=== PATIENT | female | born 1995 | race Caucasian/White ===

== ENCOUNTER 2024-06-27 16:55 | Observation (INO) | payer MEDICAID, SELFPAY ==
[2024-06-27 16:55] VITALS: BP 119/80; PULSE 96; RESP 18; TEMP 36.6; O2SAT 98
[2024-06-27 17:08] VITALS: BP 119/80; PULSE 94
[2024-06-27 17:24] VITALS: BMI 30.4
[2024-06-27 17:56] LABS: ROM Kit Lot # 57809118; ROM Swab Mixed By: ROGEC1; Rupture of Fetal Membranes Negative (Negative); Swb Mxed in Solvent 1 min? Yes
--- NOTE | 2024-06-27 18:49 | PC.NURSE ---
discharge home with kick counts and labor percautions given pt states she understands.
== END 2024-06-27 18:47 | disposition home or self-care (01) ==
PROVIDERS: Admitting Provider Obstetrics & Gynecology; Visit Provider Obstetrics & Gynecology
DX: Z34.83 Encounter for supervision of other normal pregnancy, third trimester (principal); Z3A.36 36 weeks gestation of pregnancy
CPT/HCPCS: 59025; 59899; 84112

== ENCOUNTER 2024-07-21 10:25 | Inpatient (IN) | payer MEDICAID, SELFPAY ==
[2024-07-21] VITALS (42 sets, daily range): BP systolic 101–139; BP diastolic 52–81; PULSE 63–113; RESP 18–98; TEMP 36.6–37.1; O2SAT 80–100
--- NOTE | 2024-07-21 11:52 | PD.LDHP ---
Documentation for date of: 07/21/24 OB Labor/Induct. HPI History of Present Illness Chief complaint: Labor : 4 Term pregnancies: 3 pregnancies: 0 Living children: 3 History of Vaginal deliveries: 3 History of sections: No History of : No VALERI: 07/23/24 Gestational Age (weeks): 39 Gestational Age (days): 5 History of present illness: Patient is a 29-year-old -0-0-3 history of vaginal delivery x 3 in the past who presents in active labor. She sees Kaitlyn Thrasher CNM at [facility]. Her first baby was around 5 pounds second baby around 6 pounds 6 ounces third baby 7 pounds 7 ounces . During this delivery she had a sounds like a possible shoulder dystocia with a broken clavicle. The patient has a plan that is on the chart. She is declining an IV, she is declining admission labs ,she is declining a type and screen and she is declining Pitocin or other uterotonics after delivery. According to [facility] notes, the patient declined a 1 hour glucose challenge test and had a normal hemoglobin A1c on the chart. She thinks this baby is about the size of her last baby. She presents 5 cm. She is allowing us to monitor the baby on admission. History of Present Dating criteria: LMP confirmed by 1st trimester US Adequate Care: Yes Ultrasounds: normal mid trimester US Obstetrical complications: other (Possible history of shoulder dystocia with broken clavicle last delivery) Medical complications: none Labs Maternal Blood Type: A Pos Labs: Positive: Rubella Titre and Negative: RPR, Hepatitis B, HIV, Chlamydia, Gonorrhea and Group Beta Strep Review of Systems Constitutional Comments: Patient reports good movement painful uterine contractions no loss of fluids no vaginal bleeding. The father of the baby is at bedside. Past Medical History Surgical History SURGICAL: Negative Section Meds Home Medications and Allergies Home Medications ?Medication ?Instructions ?Recorded ?Confirmed ?Type vits no.124-ferrous fum 1 tab PO QDAY 12/09/19 07/21/24 History 27 mg iron-folic acid 800 mcg tablet ( Vitamin) Allergies Allergy/AdvReac Type Severity Reaction Status Date / Time No Known Allergies Allergy Verified 07/21/24 10:41 OB Exam Physical Exam Vital signs: Temp Pulse Resp BP Pulse Ox 97.9 F 82 19 119/77 98 07/21/24 10:52 07/21/24 11:11 07/21/24 10:52 07/21/24 11:11 07/21/24 11:50 Detailed Labor and Delivery Exam Dilation (cm): 7-8 Effacement (%): 80 Cervix position: mid station: -1 Consistency: soft Presentation: Vertex Membranes: intact monitor accelerations: 15x15 monitor decelerations: None assisted variability: Moderate (11-25) Contraction frequency (min): every 5 min Tachysystole: No Contraction intensity: Strong OB Assessment & Plan Assessment and Plan (1) Active labor at term: Status: Acute Assessment and plan: Patient and spouse educated about their plan. The patient declines admission labs so she has an unknown hemoglobin. She was not anemic during . She declines a type and screen and an IV. She stated she wanted to deliver in a squatting position which I stated I was not comfortable doing. Patient and her are very aware of the risks of labor and delivery including the risk of heavy vaginal bleeding. The risk of a blood transfusion in which case we would have to give her unmatched O- blood. Risk of having to give medications after delivery which patient currently declines. She states everything went well last time . She signed a refusal of treatment consent. (2) History of shoulder dystocia with result of fractured clavicle of infant in prior , currently in third trimester: Status: Acute Assessment and plan: Discussed the risks of recurrent shoulder dystocia and possible clavicular fracture in this delivery. Pt declines a unless absolutely necessary.
[2024-07-21] MEDS: MINERAL OIL 30 ML UDC TOP (12:42)
[2024-07-21] MEDS: LIDOCAINE HCL 1% 20 ML VIAL INFL (12:48)
[2024-07-21] MEDS: IBUPROFEN TAB 400 MG TABLET 800 MG PO (13:49)
[2024-07-21] MEDS: BENZO/LANO/ALOE (Dermoplast) 60 GM CAN 1 SPRAY TOP (13:50)
--- NOTE | 2024-07-21 17:26 | OBDSUM_ITS ---
Data ([place]) Data Hx Section: No Maternal Blood Type: A Pos Rubella Titre: Positive RPR: Non-reactive Labs: Negative: RPR, Hepatitis B, HIV, Herpes Type 1 and Group Beta Strep : 4 Para: 3 Term: 3 : 0 Livin : 0 Delivery Data ([place]) Labor Data Stimulated/Augmented: No Induction: No ROM Date: 07/21/24 ROM Time: 12:36 Rupture Type: SROM Amniotic Fluid: Clear Delivery Data EDC: 07/23/24 EDC calculated by:: LMP/early US confirmation Labor Onset Stage 1 Date: 07/21/24 Labor Onset Stage 1 Time: 05:00 Labor Onset Stage 2 Date: 07/21/24 Labor Onset Stage 2 Time: 12:39 Delivery Date: 07/21/24 Delivery Time: 12:44 Gestational age (weeks): 39 Gestational age (days): 5 Placenta Delivery Date: 07/21/24 Placenta Delivery Time: 12:47 Length stage 2 (minutes): 5 Length stage 3 (minutes): 8 Delivered by: Trinidad Abdul Delivery nurse: Janet Hdez Fixture Fabricator Repairer at delivery: No Support person(s) at delivery: FOTd Other staff at delivery: Nursery Nurse Other staff at delivery: 2nd Nurse Other staff at delivery: Sulema Dahl Other staff at delivery: Theresa Rivera Delivery Method Delivery: Vaginal Delivery Type: Spontaneous Presentation: Vertex Position: OA Anesthesia Type Primary Anesthesia: None Secondary Anesthesia: Local Delivery Room Medications Other Intrapartum Medications: No Post Delivery Medications N/A: No Placenta Placenta Delivery: Spontaneous Placenta Cultures Obtained: No Placenta Sent for Examination: No Cord Sample: Cord Blood Obtained Episiotomy Episiotomy: None Lacerations #1: Perineal: 1st degree Perineal repair Sutures used for repair: 4.0 Chromic EBL Estimated blood loss (ml): 50 Umbilical Cord Umbilical Vessels: 3 Nuchal Cord: None Body Cord: x1 Additional Procedures The patient went on to progress to complete. She ruptured her membranes at 9 cm approximately 20 minutes prior to delivery. She pushed on her side through three contractions slowly easing the head out. Patient delivered in OA position with a body cord x 1, no meconium. Apgars were 9 and 9 weight was 3.32 kg or approximately 7 pounds 4 ounces. The placenta was was complete spontaneous grossly normal delivering approximately 8 minutes after the baby delivered. The placenta was sent home with the parents at their request. The patient sustained a very small perineal laceration repaired in a standard fashion using 4-0 chromic under local anesthesia. Complications were none. Condition both mom and infant were in stable condition in the delivery room. Complications Complications: None [place] Data ([place]) [place] Data Infant Gender: Female Weight Grams: 3320 1 Minute Total: 9 5 Minute Total: 9
[2024-07-22] MEDS: IBUPROFEN TAB 400 MG TABLET 800 MG PO (01:10)
[2024-07-22 01:28] VITALS: BP 126/85; PULSE 63; RESP 18; TEMP 36.6; O2SAT 96
[2024-07-22 04:37] VITALS: BP 113/71; PULSE 81; RESP 18; TEMP 36.7; O2SAT 96
[2024-07-22 07:35] VITALS: BP 126/82; PULSE 89; RESP 16; TEMP 36.8; O2SAT 96
--- NOTE | 2024-07-22 08:36 | PD.LDPPPRG ---
Subjective Subjective Interval history: Delivery type: Patient doing well this morning. No acute complaints. Ambulating, tolerating p.o. and voiding without difficulty. HTN/Pre-Eclampsia screen: No chest pain, shortness of breath, headache, visual changes, epigastric or right upper quadrant pain. Breast-feeding, lochia diminishing. Bowel: Flatus+/ BM+ Exam Vital Signs Temp Pulse Resp BP Pulse Ox O2 Del Method 98.2 F 89 16 126/82 96 Room Air 07/22/24 07:35 07/22/24 07:35 07/22/24 07:35 07/22/24 07:35 07/22/24 07:35 07/22/24 07:35 Constitutional Constitutional: no acute distress Routine HEENT Exam Head: Present normocephalic and atraumatic Eye: Present EOMI and PERRL ENT: Present mucous membranes moist Routine Neck Exam Neck: Present supple and trachea midline Routine Respiratory Exam Respiratory: Present chest non-tender, lungs clear, normal breath sounds and no resp distress Routine Cardiovascular Exam Cardiovascular: Present RRR Routine Abdominal Exam Abdominal: Present soft and normoactive bowel sounds Routine Extremities Exam Extremities: Present full ROM Routine Skin Exam Skin: Present intact, dry and warm Routine Neurological Exam Neurological: Present alert, oriented X3 and CN II-XII intact Routine Psychiatric Exam Psychiatric: Present normal affect and normal thought process Assessment & Plan Problem List (1) Active labor at term: Status: Acute (2) History of shoulder dystocia with result of fractured clavicle of infant in prior , currently in third trimester: Status: Acute (3) Vaginal delivery: Status: Acute Assessment and plan: 1. Continue routine /post-op care 2. Labs reviewed, cbc appropriate 3. Remove dressing/Ji 4. Encourage to ambulate, shower 5. Encourage PO intake, breast feeding 6. Possible discharge home today once she completes 24 hours Time Spent With Patient Time: Total time spent is greater than 50% in coordination of care (as documented) at patient's floor/unit and/or counseling patient:
--- NOTE | 2024-07-22 08:38 | ESDS_ITS ---
DS: Providers Provider Date of admission: 07/21/24 12:59 Primary care physician: Physician No Primary/Family Admitting Provider: Trinidad Abdul MD ([facility]) Attending Provider on Admission: Darek Duncan MD Attending Provider on DC: Darek Duncan MD Discharging Provider: Darek Duncan MD DS: Diagnosis Discharge Diagnosis (1) Vaginal delivery: Status: Acute (2) Active labor at term: Status: Acute (3) History of shoulder dystocia with result of fractured clavicle of infant in prior , currently in third trimester: Status: Acute Problem List Completed Was Problem List Reviewed/Reconciled?: Yes Summary/Hosp Course Brief History: Patient is a 29-year-old -0-0-3 history of vaginal delivery x 3 in the past who presents in active labor. She sees Kaitlyn Thrasehr CNM at [facility]. Her first baby was around 5 pounds second baby around 6 pounds 6 ounces third baby 7 pounds 7 ounces . During this delivery she had a sounds like a possible shoulder dystocia with a broken clavicle. The patient has a plan that is on the chart. She is declining an IV, she is declining admission labs ,she is declining a type and screen and she is declining Pitocin or other uterotonics after delivery. According to [facility] notes, the patient declined a 1 hour glucose challenge test and had a normal hemoglobin A1c on the chart. She thinks this baby is about the size of her last baby. She presents 5 cm. She is allowing us to monitor the baby on admission. Time Spent with Patient Time attestation: Total time spent providing and/or coordinating discharge services: Exam Vital Signs Temp Pulse Resp BP Pulse Ox O2 Del Method 98.2 F 89 16 126/82 96 Room Air 07/22/24 07:35 07/22/24 07:35 07/22/24 07:35 07/22/24 07:35 07/22/24 07:35 07/22/24 07:35 Discharge Plan Plan Patient Disposition: HOME (Self Care) Disposition Comment: stable Patient condition on transfer: Stable Prescriptions/Referrals Prescriptions/Med Rec: New ibuprofen 400 mg Tablet 800 mg PO Q8H PRN (Reason: See Comments) 10 Days Qty: 40 0RF docusate sodium 100 mg Capsule 100 mg PO QDAY 30 Days Qty: 30 0RF Continued Vitamin 27 mg iron- 800 mcg Tablet 1 tab PO QDAY Referrals: No Primary/Family,Physician [Primary Care Provider] - Kaitlyn Thrasher CNM [Certified Nurse Aircraft Landing Gear Inspector] - Patient/Caregiver Discharge Instructions Discharge Activity: activity as tolerated Other Discharge Activity Instructions:: Pelvic rest x 6 weeks. No tampons, intercourse ,douching , bathtubs for 6 weeks. Other Discharge Diet Instructions: General Education Materials: After a Vaginal , After Delivery Concerns, Breast Care After , Feel Healthy After Print Language: Mongolian Activity Restrictions/Additional Instructions: Call for heavy vaginal bleeding, fevers of 101.0 ?F, severe depression. Follow-up with Kaitlyn in 6 weeks. Stand Alone Forms: [employer] Award Info., Patient Portal Info Letter Planned Discharge Date 07/22/24
== END 2024-07-22 10:00 | disposition home or self-care (01) | DRG 560 ==
LOC: S4SX 15:23 → S4NX 15:47
PROVIDERS: Admitting Provider Obstetrics & Gynecology; Visit Provider Obstetrics & Gynecology
DX: O66.0 Obstructed labor due to shoulder dystocia (principal); Z37.0 Single live birth; Z3A.39 39 weeks gestation of pregnancy; O69.82X0 Labor and delivery complicated by other cord entanglement, without compression, not applicable or unspecified; O70.0 First degree perineal laceration during delivery; Z53.20 Procedure and treatment not carried out because of patient's decision for unspecified reasons
CPT/HCPCS: 85025; 86780; 86850; 86900; 86901; J3490; A9270

== ENCOUNTER 2024-09-04 15:03 | Outpatient (AMB) | payer MEDICAID, SELFPAY ==
[2024-09-04 15:24] VITALS: BP 133/71; PULSE 78; RESP 18; TEMP -12.7; TEMP 9.2; O2SAT 98
--- NOTE | 2024-09-04 15:24 | GYNCLNT_ITS ---
Vital Signs 09/04/24 15:24 Weight 67.812 kg Weight Measurement Method Standing Scale BP 133/71 H Blood Pressure Source Automatic Cuff Blood Pressure Location Left Upper Arm Position Sitting Respiration 18 Pulse 78 Pulse Source Monitor Temp 9.2 F L Temp Source Oral Pulse Oximetry (%) 98 Oxygen Delivery Method Room Air Allergies/Home Meds Allergies & Medications Allergies No Known Allergies Allergy (Verified 09/04/24 15:25) Medication Reconciliation vits no.124-ferrous fum 27 mg iron-folic acid 800 mcg tablet ( Vitamin) 1 tab PO QDAY 12/09/19 [History Confirmed 09/04/24] Intake Visit Data Collection New Patient or Established: Established Patient (seen at [facility] within 3 years) Reason for Visit:: 6 week pp Seen by Clinical Staff ONLY (RN/MA): No Tong Carrier Required: No Do You Feel Safe at Home: Yes Authorities Contacted: N/A PCP or OBGYN visit in last 3 months: Yes Date of Last PCP or OBGYN visit: 07/22/24 Hx Now: No Are you currently on any form of Control: No Pain Present Currently: No Pain Scale Used: Bee-Singh/Numerical Pain scale:: 0 Smoking Status Smoking Status: Never 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 1. Little interest or pleasure in doing things: not at all 2. Feeling down, depressed, or hopeless: not at all Total score: 0 PHQ-9 3. Trouble falling or staying asleep, or sleeping too much: Not at all 4. Feeling tired or having little energy: Not at all 5. Poor appetite or overeating: Not at all 6. Feeling bad about yourself - or that you are a failure or have let yourself or your family down: Not at all 7. Trouble concentrating on things, such as reading the newspaper or watching television: Not at all 8. Moving or speaking so slowly that other people could have noticed? - Or the opposite - being so fidgety or restless that you have been moving around a lot more than usual: not at all 9. Thoughts that you would be better off or of hurting yourself in some way: Not at all Total score: 0 If you checked off any problems, how difficult have these problems made it for you to do your work, take care of things at home, or get along with other people?: not difficult at all Source: Developed by Drs. Jose Warren, Christi Persaud, Landon Laura and colleagues, with an educational gibran from [employer]. Depression screen completed yes Social History Living Situation History Lives With: Family Housing: House Tobacco History Smoking Status: Never smoker Second Hand Smoke Exposure: No Alcohol History Alcohol Intake: Never Domestic Abuse History Do You Feel Safe at Home: Yes Past Medical History Past Medical History Have you ever been diagnosed with any of the following: Cardiology Problems Congestive Heart Failure: No Respiratory Problems Chronic Obstructive Pulmonary Disease (COPD): No Asthma: Yes Bronchitis: No Emphysema: No Pneumonia: No Pulmonary Fibrosis: No Tuberculosis: No Pulmonary Embolism: No Pulmonary Edema: No Sleep Apnea: No Stomache/Intestinal Problems Hepatitis: No Genital/Urinary Problems Renal Disease: No Reproductive Problems Endometriosis: No Genital Herpes: No Gonorrhea: No Pelvic Inflammatory Disease: No Previous Pregnancies: No Syphilis: No Uterine Prolapse: No Endocrine Problems Diabetes Mellitus Type 1: No Diabetes Mellitus Type 2: No Psychologic Problems Schizophrenia: No Recreational Drug Use: No Bipolar Disorder: No Depression: No Anxiety: No Behavior Problems: No Self-Mutilation: No Attention Deficit Disorder: No Attention Deficit Hyperactivity Disorder: No Depression: Yes Post Traumatic Stress Disorder: No Eating Disorder: No Other Problems Hospitalization: No Down Syndrome: No Autism: No Developmental Delay: No Shingles: No Falls: No Blood Transfusions: No Blood Transfusion Reaction: No Anesthesia Reactions: No Organ Transplant: No Chemotherapy: No Radiation Therapy: No Hyperbaric Therapy: No MRSA: No VRSA: No Vancomycin-Resistant Enterococci: No Human Immunodeficiency Virus (HIV): No Chicken Pox: No Measles: No Mumps: No Rubella (Yoruba Measles): No Pertussis: No Clostridium Difficile: No Cancer: No History of Present Illness HPI Narrative Doing well. no interval complaints, 07/21/24. breast feeding. plans to use copper IUD. patient is not sex ACTIVE Details: 29 yo for 6 week . vag delivery 07/21/24, baby girl 7-5. breast feeding. happy,no depression, sibling adjusting, plans to use copper IUD,used in past no problem. small perineal tear. doing well 2hr glucose: No Return of menses: No Is last menstrual period known: No : 4 Parity: 4 Resuming intercourse: No Additional details: slight perineal discomfort Name of baby: Jaquelin Gender: female Date of delivery: 07/21/24 Route of delivery: Delivering provider: mehdi Order: mac Delivery outcome: liveborn Other delivery details: uncomplicated Interim details: no feeding problems and nursing Interim complaints: perineal pain (intact, no swelling) concerns: none [place] score: 0 Additional details: desire IUD Review of Systems Review of Systems Systems Reviewed: All systems reviewed, normal except as documented Exam Narrative Physical exam: perineum intact, well healed. no vag discharge. abdomen soft, non tender, uterus well involuted. breast full no mastitis General Limitations: no limitations General Appearance: alert, in no apparent distress, comfortable, cooperative, healthy appearing, well developed and well groomed Head Head exam: atraumatic, normocephalic and normal inspection Neck Neck exam: Present normal inspection, full ROM and trachea midline Resp Respiratory exam: Present normal lung sounds bilaterally Card Cardiovascular exam: Present regular rate, normal rhythm and normal heart sounds Abdominal Abdominal exam: Present soft and normal bowel sounds Extremities Extremities exam: Present normal inspection and full ROM Psych Psychiatric exam: Present normal affect and normal mood Assessment & Plan Diagnosis / Problem List (1) Mother currently breast-feeding: Status: Acute (2) 6 weeks follow-up: Status: Acute Plan continue PNV, discuss paraguard. review method and side effect. review PAINS. Ibuprophen prior to insert visit. no sex. review latching and breast feeding positions. rtc for insert Additional Plan Follow Up: 2 Weeks (IUD insert) Office Procedures OB Clinic LOC & Office Proc's Nursing/Assessment Patient Status: Established Patient OB Clinic Nursing Assessment: BP Monitoring, Medication Reconciliation, Update PMH in EMR and Vital Signs OB Clinic Coordination of Care: Consent,records obtained, informed consent, Education Simp Pt/Fam, Results/Orders obtained and Staff clarify orders Established Patient Charge Established Patient Point Assignment: 80 Established Patient Point Charge: EP Level 3 (80-115)
== END 2024-09-04 16:19 | disposition home or self-care (01) ==
LOC: HODSOBC 15:03
PROVIDERS: Supervising Provider Advanced Practice Midwife; Visit Provider Advanced Practice Midwife
DX: Z39.2 Encounter for routine postpartum follow-up (principal); Z39.1 Encounter for care and examination of lactating mother
CPT/HCPCS: 99213; G0463

== ENCOUNTER 2024-09-25 14:27 | Outpatient (AMB) | payer MEDICAID, SELFPAY ==
[2024-09-25 15:12] VITALS: BP 125/82; PULSE 75; RESP 14; TEMP 36.4; O2SAT 98
--- NOTE | 2024-09-25 15:12 | AMB.GYNCLNOT ---
Vital Signs 09/25/24 15:12 Weight 65.034 kg Weight Measurement Method Standing Scale BP 125/82 Blood Pressure Source Automatic Cuff Blood Pressure Location Right Upper Arm Position Sitting Respiration 14 Pulse 75 Pulse Source Monitor Temp 97.6 F Temp Source Oral Pulse Oximetry (%) 98 Oxygen Delivery Method Room Air Allergies/Home Meds Allergies & Medications Allergies No Known Allergies Allergy (Verified 09/04/24 15:25) Intake Visit Data Collection New Patient or Established: Established Patient (seen at 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 Menstrual regularity: regular Flow: normal Monthly: Yes How many days does period last: 6 Age at menarche: 9 Currently sexually active: No If not currently sexually active, have you ever been 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 1. Little interest or pleasure in doing things: not at all 2. Feeling down, depressed, or hopeless: not at all Total score: 0 PHQ-9 3. Trouble falling or staying asleep, or sleeping too much: Not at all 4. Feeling tired or having little energy: Not at all 5. Poor appetite or overeating: Not at all 6. Feeling bad about yourself - or that you are a failure or have let yourself or your family down: Not at all 7. Trouble concentrating on things, such as reading the newspaper or watching television: Not at all 8. Moving or speaking so slowly that other people could have noticed? - Or the opposite - being so fidgety or restless that you have been moving around a lot more than usual: not at all 9. Thoughts that you would be better off or of hurting yourself in some way: Not at all Total score: 0 Source: Developed by Drs. Jose Warren, Christi Persaud, Landon Laura and colleagues, with an educational gibran from [employer]. Depression screen completed yes Social History Living Situation History Lives With: Family Housing: House Tobacco History Smoking Status: Never smoker Second Hand Smoke Exposure: No Alcohol History Alcohol Intake: Never Domestic Abuse History Do You Feel Safe at Home: Yes History of Present Illness HPI Narrative 29 yo for paraguard IUD insert. vag delivery 07/21/24. patient is not sex active. breast and bottle. taking PNV. lmp 09/11/24. no PMH,no social habit, no surgery. monogamous, used paraguard with no problems, No CI to method Review of Systems Review of Systems Systems Reviewed: All systems reviewed, normal except as documented Exam Narrative Physical exam: euthyroid, abdomen soft, non tender, perineum well healed, vagina pink, parrous cx, preg test - General Limitations: no limitations General Appearance: alert, in no apparent distress, comfortable, cooperative, healthy appearing, well developed and well groomed Head Head exam: atraumatic, normocephalic and normal inspection Chest Chest inspection: Present normal inspection and symmetric chest wall rise Resp Respiratory exam: Present normal lung sounds bilaterally Card Cardiovascular exam: Present regular rate, normal rhythm and normal heart sounds Abdominal Abdominal exam: Present soft and normal bowel sounds Psych Psychiatric exam: Present normal affect and normal mood Results Objective Laboratory: negative preg test Office Procedures OB Clinic LOC & Office Proc's Nursing/Assessment Patient Status: Established Patient OB Clinic Nursing Assessment: Medication Reconciliation, Update PMH in EMR and Vital Signs OB Clinic Coordination of Care: Complex Care and Chronic Disease 1-5, Consent,records obtained, informed consent, Education Simp Pt/Fam, Lab and Imaging orders, Results/Orders obtained and Staff clarify orders Miscellaneous Interventions: Blood/Urine Collection and Pelvic no cultures Established Patient Charge Established Patient Point Assignment: 145 Established Patient Point Charge: EP Level 4 (120-155) In Clinic Procedures INSERTION OF ANY IUD DEVICE: Yes Urine HCG Ambulatory Location Ambulatory Dept Location: OB Clinic Urine HCG HCG: Yes Office Meds ParaGard T 380A 380 square mm intrauterine device Performing Provider: Kaitlyn Thrasher CNM Performing Location: [facility] [employer] [employer] [facility] Clinic Administered by: Lurdes Duncan MA on 09/25/24 15:55 Dose Route Admin Location Dispensed Lot Number Expiration Date [facility] [employer] 1 device intrauterine VAGINAL 1 device [id number] 10/29/26 [id number] [employer] Results Urine HCG Urine HCG Positive Last Edit by Lurdes Duncan MA on 09/25/24 16:11 Assessment & Plan Diagnosis / Problem List (1) Encounter for insertion of copper IUD: Status: Acute Plan consent for paraguard insert. review mehtod and side effect, discuss IUD insert and risks. no sex x 3 days, string check q month. condom x 2 week, ibuprophen as needed for cramps. 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 betadine cleanse of parrous cervix, uterus mid position, ring forcep on anterior lip of cervix, uterus sound to 8 cm. paraguard Insert with applicator. no bleeding,no dizziness. string trim to 3 cm. tolerated well. preg test is negative
== END 2024-09-25 15:47 | disposition home or self-care (01) ==
LOC: HODSOBC 14:27
PROVIDERS: Supervising Provider Advanced Practice Midwife; Visit Provider Advanced Practice Midwife
DX: Z30.430 Encounter for insertion of intrauterine contraceptive device (principal)
CPT/HCPCS: 58300; 99214; G0463